=== PATIENT | female | born 1980 | race Two or more races ===

== ENCOUNTER 2017-01-20 09:30 | Emergency (ER) | payer MEDICAID ==
[2014-07-07 12:41] VITALS: BMI 41.6
[2017-01-20 10:24] LABS: BASOPHILS 0.3 % (0.0-2.0); HEMATOCRIT 41.7 % (36.0-48.0); IMMATURE GRANULOCYTES 0.1 % (0-5); LYMPHOCYTES 31.9 % (15-50); MCH 29.9 pg (26.0-34.0); MCHC 33.6 g/dL (31.0-37.0); MCV 88.9 fL (80.0-100.0); MEAN PLATELET VOLUME 9.4 fL (7.4-10.4); MONOCYTES 4.6 % (2-11); NEUTROPHILS 62.1 % (40-80); PLATELET COUNT 285 10x3/uL (130-400); RBC 4.69 10x6/uL (4.00-5.40); WBC 9.2 10x3/uL (4.8-10.8)
[2017-01-20 10:38] LABS: HCG SERUM POSITIVE (NEGATIVE)
[2017-01-20 10:49] LABS: ALBUMIN 3.2 g/dL (3.4-5.0); ALKALINE PHOSPHATASE 76 U/L (46-116); ALT (SGPT) 18 U/L (10-68); BILIRUBIN - TOTAL 1.33 mg/dL (0.2-1.3); CALC OSMOLALITY 273 mosm/kg (275-300); CALCIUM 9.2 mg/dL (8.5-10.1); CARBON DIOXIDE 23.7 mmol/L (21.0-32.0); CHLORIDE - SERUM 102 mmol/L (98-107); CREATININE - SERUM 0.5 mg/dL (0.6-1.3); POTASSIUM - SERUM 3.7 mmol/L (3.5-5.1); PROTEIN - SERUM 7.1 g/dL (6.4-8.2); SODIUM 138 mmol/L (136-145); UREA NITROGEN 6 mg/dL (7-18); eGFR NON AFRICAN AMERICAN > 90 mL/min (90-120)
[2017-01-20 10:50] LABS: GLUCOSE 91 mg/dL (74-106)
[2017-01-20 11:02] LABS: APPEARANCE CLOUDY (CLEAR); COLOR YELLOW (YELLOW); GLUCOSE NEGATIVE (NEGATIVE); LEUKOCYTE ESTERASE NEGATIVE (NEGATIVE); NITRITE NEGATIVE (NEGATIVE); PROTEIN TRACE mg/dL (NEGATIVE)
[2017-01-20 11:03] LABS: BILIRUBIN NEGATIVE (NEGATIVE); KETONE SMALL mg/dL (NEGATIVE); UROBILINOGEN NORMAL (NORMAL)
[2017-01-20 11:10] LABS: BACTERIA MODERATE /hpf (NONE SEEN); MUCUS <1+ /lpf (NONE SEEN); RED CELLS - URINE 0-5 /hpf (0-5); WHITE CELLS - URINE 0-5 /hpf (0-5)
== END 2017-01-20 13:01 | disposition home or self-care (01) ==
LOC: D.ER 09:30
PROVIDERS: Emergency Medicine; Physician Assistant
DX: N93.9 Abnormal uterine and vaginal bleeding, unspecified (principal); O20.0 Threatened abortion; Z3A.11 11 weeks gestation of pregnancy

== ENCOUNTER → 2017-07-10 14:40 | Outpatient (CLI) | payer MEDICAID ==
[2014-07-07 12:41] VITALS: BMI 41.6
[~2017-07-10 14:40] MED LIST: PRENATAL COMPLE1 TAB PO
[2017-07-10 15:33] LABS: APPEARANCE CLEAR (CLEAR); BILIRUBIN NEGATIVE (NEGATIVE); COLOR YELLOW (YELLOW); GLUCOSE NEGATIVE (NEGATIVE); KETONE MODERATE mg/dL (NEGATIVE); LEUKOCYTE ESTERASE NEGATIVE (NEGATIVE); NITRITE NEGATIVE (NEGATIVE); PROTEIN NEGATIVE (NEGATIVE); SPECIFIC GRAVITY 1.015 (1.005-1.020); UROBILINOGEN NORMAL (NORMAL)
== END | disposition home or self-care (01) ==
LOC: D.LDO 14:40
PROVIDERS: Obstetrics & Gynecology
DX: O36.8130 Decreased fetal movements, third trimester, not applicable or unspecified (principal); Z3A.35 35 weeks gestation of pregnancy

== ENCOUNTER → 2017-07-26 12:36 | Outpatient (CLI) | payer MEDICAID ==
[2014-07-07 12:41] VITALS: BMI 41.6
== END | disposition home or self-care (01) ==
LOC: D.LDO 12:36
DX: O26.893 Other specified pregnancy related conditions, third trimester (principal); Z3A.38 38 weeks gestation of pregnancy

== ENCOUNTER → 2017-08-06 04:47 | Outpatient (CLI) | payer MEDICAID ==
[2014-07-07 12:41] VITALS: BMI 41.6
[2017-08-06 07:23] LABS: APPEARANCE HAZY (CLEAR); BILIRUBIN NEGATIVE (NEGATIVE); COLOR YELLOW (YELLOW); GLUCOSE NEGATIVE (NEGATIVE); KETONE NEGATIVE (NEGATIVE); LEUKOCYTE ESTERASE TRACE (NEGATIVE); NITRITE NEGATIVE (NEGATIVE); PROTEIN NEGATIVE (NEGATIVE); UROBILINOGEN NORMAL (NORMAL)
[2017-08-06 07:32] LABS: BACTERIA MANY /hpf (NONE SEEN); WHITE CELLS - URINE 0-5 /hpf (0-5)
== END | disposition home or self-care (01) ==
LOC: D.LDO 04:47
PROVIDERS: Obstetrics & Gynecology
DX: O46.93 Antepartum hemorrhage, unspecified, third trimester (principal); Z3A.39 39 weeks gestation of pregnancy

== ENCOUNTER 2017-08-08 05:12 | Inpatient (IN) | payer MEDICAID ==
[~2017-08-08] VITALS: Ht 152.4 cm; Wt 97.5 kg
[2017-08-08 05:50] VITALS: BP 114/69; Ht 152.4 cm; Wt 97.5 kg
[2017-08-08] MEDS ORDERED: PRENATAL COMPLE1 TAB PO (05:50)
[2017-08-08 07:22] LABS: HEMATOCRIT 34.7 % (36.0-48.0); HEMOGLOBIN 11.3 g/dL (12-16); MCHC 32.6 g/dL (31.0-37.0); MEAN PLATELET VOLUME 10.6 fL (7.4-10.4); RBC 4.18 10x6/uL (4.00-5.40); RDW 15.4 % (11.5-14.5); WBC 6.4 10x3/uL (4.8-10.8)
--- NOTE | 2017-08-08 22:36 | NUR ---
PT AMBULATORY TO ROOM 1274 WITH STAND BY ASSIST FROM RN. ORIENTED TO NEW ROOM, BED CONTROLS, BATHROOM, AND CL USE, UNDERSTANDING VERBALIZED INSTRUCTED ON NEED TO MEASURE AT LEAST ONE MORE VOID, VERBALIZES UNDERSTANDING. VSS. FUNDUS FIRM U1 WITH SMALL AMT RUBRA LOCHIA. ICE WATER GIVEN. NEW ICE PACK TO PERINUM. MILD BILATERAL LAIBIAL SWELLING. DENIES ADDITIONAL NEEDS AT THIS TIME. BED PLACED IN LOW POSITION WITH UPPER SIDE RAILS RAISED X2. CL AND PHONE WITHIN REACH. WILL CONT TO MONITOR AND ASSIST PRN.
[2017-08-08 22:40] VITALS: BP 104/54
--- NOTE | 2017-08-08 22:55 | NUR ---
PT C/O BURNING AND DISCOMFORT TO PERINUM. DERMAPLAST, TUX, AND EPIFOAM PROVIDED WITH INSTRUCTION ON USE. PT VERBALIZED UNDERSTANDING OF USE AND STATES THAT SHE WILL USE THEM WHEN SHE GETS UP TO VOID. PRN PAIN MEDICATIONS DISCUSSED AND PT DECLINES PO MEDS AT THIS, "IT'S NOT THAT BAD JUST UNCOMFORTABLE." ENCOURAGED USE OF ICE PACK FOR AT LEAST 24 HOURS POST DELIVERY. VERBALIZED UNDERSTANDING. DENIES ADDITIONAL NEEDS AT THIS TIME. WILL CONT TO MONITOR AND ASSIST PRN. BED IN LOW POSITION WITH UPPER SIDE RAILS RAISED X2. CL AND PHONE WITHIN REACH.
--- NOTE | 2017-08-09 00:35 | NUR ---
PT CALLS VIA CL. RN TO BEDSIDE. PT HOLDING INFANT IN ARMS STATES THAT SHE NEEDED TO NOTIFY NBN WHEN SHE COMPLETED FEEDING ON ONE SIDE FOR INFANT V/S. NBN NOTIFIED AND TO ROOM FOR V/S. PT UP TO VOID, VOIDS 900 MLS IN HAT. MODERATE AMT RUBRA LOCHIA TO PERIPAD, NO CLOTS PRESENT. PT BACK TO BED TO COMPLETE OF . WILL CONT MONITOR AND ASSIST PRN. BED IN LOW POSITION WITH UPPER SIDE RAILS RAISED X2. CL AND PHONE WITHIN REACH.
--- NOTE | 2017-08-09 01:32 | NUR ---
PT CALLS VIA CL, COMPLETED . INFANT BACK TO NBN PER PT REQUEST. FUNDUS FIRM U2 WITH SMALL AMT RUBRA LOCHIA, NO CLOTS PRESENT. NEW ICE PACK PLACED TO PERINUM. ICE WATER GIVEN PER REQUEST. DENIES ADDITIONAL NEEDS AT THIS TIME. STATES THAT SHE IS GOING TO REST. BED IN LOW POSITION WITH UPPER SIDE RAILS RAISED X2. CL AND PHONE WITHIN REACH. WILL CONT TO MONITOR AND ASSIST PRN.
--- NOTE | 2017-08-09 03:07 | NUR ---
RN TO BEDSIDE FOR ROUNDS. PT RESTING WITH EYES CLOSED IN SEMI FOWLERS. RESPIRATIONS REGULAR AND UNLABORED. NO S/S OF DISTRESS NOTED. BED IN LOW POSITION WITH UPPER SIDE RAILS RAISED X2. CL AND PHONE WITHIN REACH. WILL CONT TO MONITOR AND ASSIST PRN.
--- NOTE | 2017-08-09 03:55 | NUR ---
PAIN 4/10, ABD CRAMPING. DEMEROL 50 MG PO GIVEN PER ORDER. EDUCATED ON MEDICATION USE, FREQUENCY, AND POSSIBLE SIDE EFFECTS WITH UNDERSTANDING VERBALIZED. ICE PACK REMAINS IN PLACE TO PERINUM, PT STATES SHE JUST REAPPLIED AFTER HAVING IT OFF FOR "A WHILE." BED IN LOW POSITION WITH UPPER SIDE RAILS RAISED X2. CL AND PHONE WITHIN REACH. WILL CONT TO MONITOR AND ASSIST PRN.
--- NOTE | 2017-08-09 04:42 | NUR ---
RN TO BEDSIDE FOR PAIN REASSESSMENT. PT RESTING WITH EYES CLOSED. RESPIRATIONS REGULAR AND UNLABORED. NO S/S OF DISTRESS NOTED. BED IN LOW POSITION WITH UPPER SIDE RAILS RAISED X2. CL AND PHONE WITHIN REACH. IN NBN. WILL CONT TO MONITOR AND ASSIST PRN.
[2017-08-09 07:09] LABS: HEMATOCRIT 33.7 % (36.0-48.0); HEMOGLOBIN 10.9 g/dL (12-16); MCH 27.2 pg (26.0-34.0); MCHC 32.3 g/dL (31.0-37.0); MEAN PLATELET VOLUME 10.1 fL (7.4-10.4); RBC 4.01 10x6/uL (4.00-5.40); RDW 15.6 % (11.5-14.5)
[2017-08-09 07:17] LABS: WBC 10.9 10x3/uL (4.8-10.8)
[2017-08-09 07:23] LABS: RAPID PLASMA REAGIN Non Reactive (Non Reactive)
--- NOTE | 2017-08-09 07:27 | NUR ---
ROUNDS MADE. PT SITTING UP IN BED EATING MEAL TRAY. DENIES PAIN OR NEEDS AT THIS TIME. WILL RETURN FOR ASSESSMENT.
[2017-08-09 08:01] VITALS: BP 115/58
--- NOTE | 2017-08-09 08:01 | NUR ---
RN TO PT BEDSIDE FOR SHIFT ASSESSMENT. PT STANDING BESIDE OPEN CRIB SOOTHING . PT TO BED FOR V/S CHECK. VSS, BREATH SOUNDS CLEAR & UNLABORED X2. BOWEL SOUNDS ACTIVE X4. FUNDUS FIRM, ML, U/2. NO CLOTS NOTED, SMALL LOCHIA RUBRA NOTED ON PERIPAD. SL TO RT HANDED NOTED. NO ERYTHEMA OR EDEMA @ SITE. PT DENIES PAIN. FRESH ICE WATER PROVIDED PER PT REQUEST. MEAL TRAY REMOVED FROM ROOM WITH 100% OF MEAL CONSUMED. PT DENIES FURTHER NEEDS. BED LOW, WHEELS LOCKED, CL IN REACH, SIDE RAILS UP X2.
--- NOTE | 2017-08-09 09:18 | NUR ---
Laura Lewis [birth year] S: Patient states, "This is her forth baby, baby is doing great with , it's like he was born for this." O: Patient sitting up in bed watching television, infant in nursery. Paised for . Encouraged to continue to latch infant for every feeding. Explained feeding cues, should feed on demand when showing feeding cues, this will help with establishing your milk supply. Supply and demand, what infant takes out, your body will make more of. the first several weeks does take time, both mother and baby are learning about . Provided and explained handouts on feeding cues, starting a feeding, positions, waking a sleeping baby, and benefits of skin to skin. Asked if any questions or concerns, all declined. Asked if her nipples are sore, patient states,"No,they are fine." Will follow up. A: Patient appears confident with . P: Continue to support exclusivley . Nick Jay, CLC
--- NOTE | 2017-08-09 09:22 | NUR ---
ROUNDS MADE. PT AMB IN ROOM. RATES PAIN 3/10 AT THIS TIME BUT REPORTS THIS TOLERABLE. PT DENIES FURTHER NEEDS.
--- NOTE | 2017-08-09 10:11 | NUR ---
ROUNDS MADE. FOB IN ROOM HOLDING INFANT AT THIS TIME. PT AMB IN ROOM AND RATES PAIN 03/06. REQUESTS & RECEIVES MOTRIN 600MG X1 TAB. SL IN LT AND D/C'D WITH CATH TIP INTACT. PT TOLERATED WELL. BANDAID APPLIED TO SITE. PT DENIES FURTHER NEEDS. WILL CONT TO MONITOR.
--- NOTE | 2017-08-09 11:01 | NUR ---
PAIN REASSESSMENT COMPLETED AT THIS TIME. PT RATES PAIN 3/10 AND IS CURRENTLY WHILE ON BEDSIDE COUCH. PT DENIES FURTHER NEEDS. WILL CONT TO MONITOR.
--- NOTE | 2017-08-09 12:38 | NUR ---
ROUNDS MADE. PT LYING IN BED WITH INFANT UP IN ARMS BONDING. FOB AT BEDSIDE COUCH. PT DENIES PAIN OR NEEDS AT THIS TIME. WILL CONT POC.
--- NOTE | 2017-08-09 13:44 | NUR ---
ROUNDS MADE. PT LYING ON BACK IN BED. HOB 45 DEGREES. PT WITH UP IN ARMS BONDING AT THIS TIME. RATES PAIN 3/10, CRAMPING, BUT TOLERABLE AT THIS TIME. PT DENIES NEEDS.
--- NOTE | 2017-08-09 14:18 | NUR ---
RN TO PT BS FOR ROUNDS. PT WITH UP IN ARMS FOR BONDING. PT DENIES NEED FOR PAIN MEDICATION FOR PAIN RATED 3/10. FRESH ICE WATER PROVIDED PER PT REQUEST. PT DENIES FURTHER NEEDS.
--- NOTE | 2017-08-09 15:17 | NUR ---
RN TO PT BS FOR ROUNDS. PT DENIES NEEDS AND RATES PAIN 2/10. WILL CONT TO MONITOR.
[2017-08-09] MEDS ORDERED: IBUPROFEN600 MG PO (15:35)
--- NOTE | 2017-08-09 16:32 | NUR ---
RN TO PT BS. PT AT THIS TIME AND RATES PAIN 02/03. MOTRIN 600MG X1 TAB PROVIDED PER PT REQUEST. FRESH ICE WATER ALSO PROVIDED. PT DENIES FURTHER NEEDS. WILL CONT. TO MONITOR.
--- NOTE | 2017-08-09 17:17 | NUR ---
PAIN REASSESSMENT COMPLETE. PT RATES PAIN 2/10 AND TOLERABLE. FAMILY AT BEDSIDE AWAITING PT D/C. PT DENIES FURTHER NEEDS. WILL CONT. POC.
--- NOTE | 2017-08-09 18:02 | NUR ---
ROUNDS MADE. FAMILY REMAINS AT BEDSIDE. PT WITH INFANT UP IN ARMS. PT RATES PAIN 2/10. DENIES FURTHER NEEDS. PT INQUIRES ABOUT D/C. INFORMED AWAITING INFANT D/C FROM [employer]. PT AND FAMILY VERBALIZED UNDERSTANDING AND DENY FURTHER NEEDS OR CONCERNS.
--- NOTE | 2017-08-09 18:16 | NUR ---
D/C INST. EXPLAINED, SIGNED, AND WITNESSED. CONCERNS AND QUESTIONS ADDRESSED. PT DENEIS FURTHER NEEDS.
== END 2017-08-09 18:25 | disposition home or self-care (01) | DRG 775 ==
LOC: D.LD 05:12
PROVIDERS: ADMIT Obstetrics & Gynecology
PROC: 10E0XZZ Delivery of Products of Conception, External Approach (ICD-10-PCS; principal; 2017-08-08)
PROC: 10907ZC Drainage of Amniotic Fluid, Therapeutic from Products of Conception, Via Natural or Artificial Opening (ICD-10-PCS; 2017-08-08)
PROC: 3E033VJ Introduction of Other Hormone into Peripheral Vein, Percutaneous Approach (ICD-10-PCS; 2017-08-08)
DX: O69.81X0 Labor and delivery complicated by cord around neck, without compression, not applicable or unspecified (principal); Z68.41 Body mass index [BMI] 40.0-44.9, adult; Z3A.39 39 weeks gestation of pregnancy; Z37.0 Single live birth; O99.214 Obesity complicating childbirth; E66.01 Morbid (severe) obesity due to excess calories

== ENCOUNTER 2019-07-18 17:48 | Inpatient (IN) | payer SELFPAY ==
[~2019-07-18] VITALS: Ht 152.4 cm; Wt 95.5 kg
[~2019-07-18 17:48] MED LIST changes: +IBUPROFEN600 MG PO
[2019-07-18 18:10] LABS: BASOPHILS 0.2 % (0-2); EOSINOPHILS 0.2 % (0-7); HEMATOCRIT 38.5 % (36.0-48.0); IMMATURE GRANULOCYTES 0.4 % (0-5); LYMPHOCYTES 13.9 % (15-50); MCH 27.7 pg (26.0-34.0); MCHC 33.8 g/dL (31.0-37.0); MCV 82.1 fL (80.0-100.0); MEAN PLATELET VOLUME 9.3 fL (7.4-10.4); MONOCYTES 3.4 % (2-11); NEUTROPHILS 81.9 % (40-80); RBC 4.69 10x6/uL (4.00-5.40); RDW 14.6 % (11.5-14.5)
[2019-07-18 18:11] LABS: PLATELET COUNT 320 10x3/uL (130-400)
[2019-07-18 18:28] LABS: ALBUMIN 3.5 g/dL (3.4-5.0); ALKALINE PHOSPHATASE 98 U/L (46-116); ALT (SGPT) 37 U/L (10-68); BILIRUBIN - TOTAL 1.95 mg/dL (0.2-1.3); CALC OSMOLALITY 272 mosm/kg (275-300); CALCIUM 9.1 mg/dL (8.5-10.1); CARBON DIOXIDE 24.8 mmol/L (21.0-32.0); CHLORIDE - SERUM 101 mmol/L (98-107); CREATININE - SERUM 0.6 mg/dL (0.6-1.3); GLUCOSE 117 mg/dL (74-106); POTASSIUM - SERUM 3.7 mmol/L (3.5-5.1); PROTEIN - SERUM 7.7 g/dL (6.4-8.2); SODIUM 137 mmol/L (136-145); UREA NITROGEN 7 mg/dL (7-18); eGFR NON AFRICAN AMERICAN > 90 mL/min (90-120)
[2019-07-18 18:34] LABS: APTT 30.1 SECONDS (22.8-39.4); INR 1.05 (0.85-1.17); PROTIME 13.2 SECONDS (11.6-15.0)
[2019-07-18 18:40] LABS: CKMB 1.2 U/L (0.0-3.6); CREATINE KINASE 158 UL (21-215); MAGNESIUM - SERUM 1.8 mg/dL (1.8-2.4); TROPONIN-I < 0.017 ng/mL (0.000-0.060)
[2019-07-18 19:37] LABS: APPEARANCE CLEAR (CLEAR); BILIRUBIN NEGATIVE (NEGATIVE); COLOR STRAW (YELLOW); GLUCOSE NEGATIVE (NEGATIVE); KETONE NEGATIVE (NEGATIVE); NITRITE NEGATIVE (NEGATIVE); PROTEIN NEGATIVE (NEGATIVE); SPECIFIC GRAVITY 1.005 (1.005-1.020); UROBILINOGEN NORMAL (NORMAL)
[2019-07-18 19:39] LABS: BACTERIA FEW /hpf (NONE SEEN); EPITHELIAL CELLS 0-5 /hpf (0-5); RED CELLS - URINE RARE /hpf (0-5); WHITE CELLS - URINE RARE /hpf (0-5)
--- NOTE | 2019-07-18 19:45 | NUR ---
PT LAYING IN BED. RESPIRATIONS ARE EVEN AND UNLABORED. NO DISTRESS NOTED AT THIS TIME. COLOR WNL FOR RAC.E IV PATENT AND INFUSING WITH NO S/S OF INFILTRATION OBSERVED. PT REPORTS DECREASE IN PAIN. FAMILY MEMBER AT BEDSIDE. WILL CONTINUE TO MONITOR. PT IS ATTACHED TO BP, PULSE OX AND CARDIAC MONITORING. SINUS TACH ON MONITOR.
[2019-07-18 19:46] VITALS: BP 124/68
[2019-07-19 01:06] LABS: CKMB 0.9 U/L (0.0-3.6); CREATINE KINASE 120 UL (21-215); TROPONIN-I < 0.017 ng/mL (0.000-0.060)
[2019-07-19 01:36] VITALS: BMI 41.0
[2019-07-19 03:16] LABS: INR 1.08 (0.85-1.17); PROTIME 13.5 SECONDS (11.6-15.0)
[2019-07-19 03:17] LABS: APTT 31.1 SECONDS (22.8-39.4)
[2019-07-19 03:18] LABS: D-DIMER-QUANTITATIVE 0.34 ug/mLFEU (0.20-0.54)
--- NOTE | 2019-07-19 03:19 | NUR ---
RESTING WITH EYES CLOSED, RESPERATONS EVEN, NO S/S DSITRESS NOTED.
[2019-07-19 03:38] LABS: C-REACTIVE PROTEIN 7.7 mg/dL (0.0-0.9); CKMB 0.9 U/L (0.0-3.6); CREATINE KINASE 101 UL (21-215)
[2019-07-19 03:41] LABS: TROPONIN-I < 0.017 ng/mL (0.000-0.060)
[2019-07-19 04:00] VITALS: BP 118/72
[2019-07-19 04:07] LABS: ERYTHROCYTE SEDIMENTATION RATE 18 mm/hr (0-20)
[2019-07-19 09:27] VITALS: Ht 152.4 cm; Wt 95.5 kg
[2019-07-19 10:11] LABS: CKMB 0.7 U/L (0.0-3.6); CREATINE KINASE 115 UL (21-215); TROPONIN-I < 0.017 ng/mL (0.000-0.060)
[2019-07-19 11:00] VITALS: BP 137/79
[2019-07-19 12:01] LABS: BASOPHILS 0.1 % (0-2); EOSINOPHILS 0.3 % (0-7); HEMATOCRIT 40.1 % (36.0-48.0); HEMOGLOBIN 13.3 g/dL (12-16); IMMATURE GRANULOCYTES 0.3 % (0-5); LYMPHOCYTES 16.3 % (15-50); MCH 27.7 pg (26.0-34.0); MCHC 33.2 g/dL (31.0-37.0); MCV 83.4 fL (80.0-100.0); MEAN PLATELET VOLUME 9.3 fL (7.4-10.4); MONOCYTES 3.8 % (2-11); NEUTROPHILS 79.2 % (40-80); PLATELET COUNT 279 10x3/uL (130-400); RBC 4.81 10x6/uL (4.00-5.40); RDW 14.9 % (11.5-14.5); WBC 14.4 10x3/uL (4.8-10.8)
[2019-07-19 12:19] LABS: ALBUMIN 3.4 g/dL (3.4-5.0); ALKALINE PHOSPHATASE 97 U/L (46-116); ALT (SGPT) 34 U/L (10-68); BILIRUBIN - TOTAL 1.58 mg/dL (0.2-1.3); CALC OSMOLALITY 274 mosm/kg (275-300); CALCIUM 8.5 mg/dL (8.5-10.1); CARBON DIOXIDE 26.6 mmol/L (21.0-32.0); CHLORIDE - SERUM 105 mmol/L (98-107); CREATININE - SERUM 0.5 mg/dL (0.6-1.3); GLUCOSE 110 mg/dL (74-106); POTASSIUM - SERUM 3.7 mmol/L (3.5-5.1); PROTEIN - SERUM 7.7 g/dL (6.4-8.2); SODIUM 138 mmol/L (136-145); UREA NITROGEN 8 mg/dL (7-18); eGFR NON AFRICAN AMERICAN > 90 mL/min (90-120)
--- NOTE | 2019-07-19 13:15 | NUR ---
LEAVING FOR STRESS TEST BY W/C. WILL CONT. PLAN OF CARE.
--- NOTE | 2019-07-19 14:15 | NUR ---
BACK FROM STRESS TEST. DIET RESUMED.
[2019-07-19 16:23] VITALS: BP 132/85
--- NOTE | 2019-07-19 17:53 | NUR ---
IV AND TELEMETRY DCD. DC PLANS GIVEN. UNDERSTANDING VOICED. ESCORTED TO CAR BY W/C.
--- NOTE | 2019-07-22 08:55 | MORECARE ---
CASE MANAGEMENT DISCHARGE SUMMARY PATIENT: FERNANDO JORGENSEN UNIT: [id number] ADM DATE: 07/18/19 AGE: 39 : [birth year] SEX: F ROOM/BED: D.1773 AUTHOR: TOYA ROLLINS PHYSICIAN: REFERRING PHYSICIAN: TIFFANIE GUPTA MD DATE OF SERVICE: 07/22/19 Discharge Plan Patient Name: FERNANDO JORGENSEN Facility: [facility]:[place] : 1980 Planned Disposition: Home Anticipated Discharge Date: 07/19/19 Discharge Date: 07/19/2019 Expected LOS: 1 Initial Reviewer: [email or web address] Initial Review Date: 07/22/2019 Generated: 07/22/19 9:55 am DCP- Discharge Planning Updated by [email or web address]: Christiana Rodriguez on 07/19/19 7:[address] CM met with patient to complete initial dc planning assessment. CM educated patient on the CM role and verbal consent given by patient to complete assessment. CM verified patient's address, phone number, and emergency contact phone numbers. Patient lives at home with her spouse age 91, and is his primary caregiver. She requires assistance with some ADLs from her daughter who assists her 4 days/week, Annamarie Rostad #[phone] (home #). Patient is currently with [facility] and she wishes to resume at discharge. Patient would benefit withPT services to continue strengthing and cane training. At discharge patient plans to return home with her spouse and feels this is a safe discharge. PCP: Dr. Beatrice Torres [facility]. Pharmacy: [facility]. DME: [facility]. Patient reports her brother, Hero Hlul, (home #) #[phone] or her daughter Annamarie will transport her home upon discharge. Patient denies being hospitalized in past 30 days. CM will continue to follow and will assist as needed with dc plans/needs. Christiana Rodriguez RN Patient Name: FERNANDO JORGENSEN Page [id number] at 0855 All edits/amendments must be made on the electronic document DICTATION DATE: 07/22/19854 SUPERVISOR SPECIAL EFFECTS: KRISTY 07/22/1957 RPT#: [id number] DC DATE:07/19/19 STATUS: DIS IN [facility] [address] [place] [address] END OF REPORT
--- NOTE | 2019-07-23 11:09 | DS ---
PATIENT:FERNANDO JORGENSEN :[birth year] MEDICAL RECORD: [id number] DISCHARGE SUMMARY ADMISSION DATE: 07/18/19 DISCHARGE DATE: 07/19/19 DIAGNOSES: 1. Chest discomfort. 2. Normal nuclear stress test. HOSPITAL COURSE: Mrs. Jorgensen presents with chest discomfort of unknown etiology; however, nuclear stress testing was normal. Discharged home with no cardiac followup. She will follow up and contact us if she has recurrent chest pain. TRANSINT:[id number] Voice Confirmation ID: [id number] DOCUMENT ID: [id number] KURTIS MILLER MD at 1109 CC: [id number] DICTATION DATE: 07/19/19 1620 RIM ROLLER SETTER: 07/19/194 DIS IN 07/19/19 [id number] [place] [address]
--- NOTE | 2019-07-23 11:09 | ST ---
PATIENT:FERNANDO JORGENSEN MEDICAL RECORD: [id number] SEX: F LOCATION:D. D.211 ORDER #: ADMISSION DATE: 07/18/19 AGE OF PATIENT: 39 REFERRING PHYSICIAN: INTERPRETING PHYSICIAN: KURTIS MILLER MD DATE OF SERVICE: 07/19/2019 NUCLEAR STRESS TEST INDICATION: Chest pain. She was exercised on standard Lexiscan protocol with 29 mCi of sestamibi injected at peak stress, 12 mCi used previously for rest images. FINDINGS: Gated SPECT reveals preserved ejection fraction at 65% with good wall motion and thickening and brightening throughout all segments. SPECT imaging Cardiolite was used as myocardial fusion agent. There is homogeneous uptake throughout all segments at rest and stress with no evidence of inducible ischemia or previous infarction. OVERALL IMPRESSION: 1. This is a normal nuclear stress test with no evidence of inducible ischemia or previous infarction. 2. Gated SPECT reveals a preserved ejection fraction at 65%. In this patient with ongoing symptomatology, the current scan does not suggest the presence of hemodynamically significant coronary artery disease. Evaluate noncardiac etiology of chest pain. TRANSINT:[id number] Voice Confirmation ID: [id number] DOCUMENT ID: [id number] KURTIS MILLER MD at 1109 CC: [id number] DICTATION DATE: 07/19/19 1620 FOLD SKIVER: 07/19/19 2133 DIS IN 07/19/19 [address] [place] [address]
== END 2019-07-19 17:54 | disposition home health service (06) | DRG 313 ==
LOC: D.ER 17:48 → D.M2 20:46
PROVIDERS: Family Medicine; ADMIT Family Medicine; ATTEND Family Medicine
DX: R07.9 Chest pain, unspecified (principal); R94.31 Abnormal electrocardiogram [ECG] [EKG]; D72.829 Elevated white blood cell count, unspecified; E80.6 Other disorders of bilirubin metabolism

== ENCOUNTER 2020-09-09 17:30 | Outpatient (CLI) | payer OTHER ==
[2019-07-19 09:27] VITALS: BMI 41.0
== END 2020-09-09 23:59 | disposition home or self-care (01) ==
LOC: D.MAMMO 17:30
PROVIDERS: ATTEND Student in an Organized Health Care Education/Training Program
DX: Z12.31 Encounter for screening mammogram for malignant neoplasm of breast (principal)